=== PATIENT | male | born 1940 | race Caucasian/White ===

== ENCOUNTER 2022-05-03 13:00 | Outpatient (CLI) | payer OTHER, SELFPAY | END 2022-05-03 13:01 | disposition home or self-care (01) | LOC: AMB 05-24 12:05 | PROVIDERS: Visit Provider Family Medicine | DX: S99.911A Unspecified injury of right ankle, initial encounter (principal); V47.5XXA Car driver injured in collision with fixed or stationary object in traffic accident, initial encounter; Y92.411 Interstate highway as the place of occurrence of the external cause | CPT/HCPCS: A0425; A0427 ==